=== PATIENT | male | born 2000 | race African-American/Black ===

== ENCOUNTER 2020-08-24 08:43 | Emergency (ER) | payer BC ==
--- OUTSIDE RECORDS SUMMARY | 2020-08-24 08:45 | XMS REPORT | Continuity of Care Document ---
:2000 Author Organization [facility] t Address [address] [place] [address] Care Team Providers Name Role Phone Provider, [facility] Attending Clinician Unavailable Problems This patient has no known problems. Allergies, Adverse Reactions, Alerts This patient has no known allergies or adverse reactions. Medications This patient has no known medications. Procedures This patient has no known procedures. Encounters Start End Encounter Admission Attending Care Care Encounter Source Date/Time Date/Time Type Type Clinicians Facility Department ID 2020-07-26 2020-07-26 Urgent Provider, [facility] [id number] 12:25:29 13:47:07 Care [facility] [id number] [facility] [id number] [phone] [address] Results This patient has no known results.
--- NOTE | 2020-08-24 09:12 | EDPHYS ---
Physician Documentation [facility] Name: Tong Dimas Age: 20 yrs Sex: Male : 2000 Arrival Date: 08/24/2020 Time: 08:46 Bed 4 Private MD: LUCA Physician Justin Prince HPI: 08/24 09:02 This 20 yrs old Black Male presents to ER via Ambulatory with complaints of Abdominal kami Pain. 09:02 The patient presents with abdominal pain in the epigastric area. Onset: The kami symptoms/episode began/occurred last night. The patient presents to the emergency department with nausea, vomiting, abdominal pain, of the epigastric area, right upper quadrant and left upper quadrant. Onset: The symptoms/episode began/occurred 2 day(s) ago. Possible causes: unknown. The symptoms are aggravated by nothing. The symptoms are alleviated by nothing. The symptoms do not radiate. Modifying factors: The symptoms are alleviated by nothing. Historical: - Allergies: 09:00 No Known Allergies; aa5 - PMHx: 09:00 None; aa5 - PSHx: 09:00 None; aa5 - Immunization history:: Adult Immunizations up to date. - Social history:: Smoking status: Patient denies any tobacco usage or history of. - Family history:: not pertinent. ROS: 09:02 Constitutional: Negative for fever, chills, and weight loss, Eyes: Negative for injury, kami pain, redness, and discharge, ENT: Negative for injury, pain, and discharge, Neck: Negative for injury, pain, and swelling, Cardiovascular: Negative for chest pain, palpitations, and edema, Respiratory: Negative for shortness of breath, cough, wheezing, and pleuritic chest pain, Back: Negative for injury and pain, : Negative for injury, bleeding, discharge, and swelling, MS/Extremity: Negative for injury and deformity, Skin: Negative for injury, rash, and discoloration, Neuro: Negative for headache, weakness, numbness, tingling, and seizure, Psych: Negative for depression, anxiety, suicide ideation, homicidal ideation, and hallucinations, Allergy/Immunology: Negative for hives, rash, and allergies, Endocrine: Negative for neck swelling, polydipsia, polyuria, polyphagia, and marked weight changes, Hematologic/Lymphatic: Negative for swollen nodes, abnormal bleeding, and unusual bruising. 09:02 Abdomen/GI: Positive for abdominal pain, nausea, vomiting, of the epigastric area, right upper quadrant and left upper quadrant. Exam: 09:02 Constitutional: This is a well developed, well nourished patient who is awake, alert, kami and in no acute distress. Head/Face: Normocephalic, atraumatic. Eyes: Pupils equal round and reactive to light, extra-ocular motions intact. Lids and lashes normal. Conjunctiva and sclera are non-icteric and not injected. Cornea within normal limits. Periorbital areas with no swelling, redness, or edema. ENT: Nares patent. No nasal discharge, no septal abnormalities noted. Tympanic membranes are normal and external auditory canals are clear. Oropharynx with no redness, swelling, or masses, exudates, or evidence of obstruction, uvula midline. Mucous membranes moist. Neck: Trachea midline, no thyromegaly or masses palpated, and no cervical lymphadenopathy. Supple, full range of motion without nuchal rigidity, or vertebral point tenderness. No Meningismus. Chest/axilla: Normal chest wall appearance and motion. Nontender with no deformity. No lesions are appreciated. Cardiovascular: Regular rate and rhythm with a normal S1 and S2. No gallops, murmurs, or rubs. Normal PMI, no JVD. No pulse deficits. Respiratory: Lungs have equal breath sounds bilaterally, clear to auscultation and percussion. No rales, rhonchi or wheezes noted. No increased work of breathing, no retractions or nasal flaring. Abdomen/GI: Soft, non-tender, with normal bowel sounds. No distension or tympany. No guarding or rebound. No evidence of tenderness throughout. Back: No spinal tenderness. No costovertebral tenderness. Full range of motion. Male : Normal genitalia with no discharge or lesions. Skin: Warm, dry with normal turgor. Normal color with no rashes, no lesions, and no evidence of cellulitis. MS/ Extremity: Pulses equal, no cyanosis. Neurovascular intact. Full, normal range of motion. Neuro: Awake and alert, GCS 15, oriented to person, place, time, and situation. Cranial nerves II-XII grossly intact. Motor strength 5/5 in all extremities. Sensory grossly intact. Cerebellar exam normal. Normal gait. Psych: Awake, alert, with orientation to person, place and time. Behavior, mood, and affect are within normal limits. Vital Signs: 08:48 BP 135 / 79; Pulse 63; Resp 16 S; Temp 97.7(O); Pulse Ox 100% on R/A; aa5 MDM: 08:50 Patient medically screened. kami 09:09 Differential diagnosis: Nonspecific abd pain, gastritis, gastritis, non-specific abd kami pain. Data reviewed: vital signs, nurses notes. Data interpreted: environmental monitoring specialist: not applicable for this patient encounter. rate is 63 beats/min, rhythm is regular, Pulse oximetry: on room air is 100 %. Counseling: I had a detailed discussion with the patient and/or guardian regarding: the historical points, exam findings, and any diagnostic results supporting the discharge/admit diagnosis, the need for outpatient follow up, for definitive care, a family practitioner. Administered Medications: No medications were administered Disposition: 08/24/20 09:11 Discharged to Home. Impression: Vomiting, Abdominal tenderness - resolved. - Condition is Stable. - Discharge Instructions: Abdominal Pain, Adult, Nausea and Vomiting, Adult, Nausea and Vomiting, Adult, [id number], Abdominal Pain, Adult, [id number]. - Work release form, Medication Reconciliation Form, Thank You Letter, Antibiotic Education, Prescription Opioid Use form. - Follow up: Private Physician; When: 1 - 2 days; Reason: Recheck today's complaints, Continuance of care, Re-evaluation by your physician. - Problem is new. - Symptoms have improved. Signatures: Justin Prince MD MD cha Calderon, Audri RN RN aa5 Ethan Vidal RN RN jd3 Corrections: (The following items were deleted from the chart) 18 09:11 08/24/2020 09:11 Discharged to Home. Impression: Vomiting; Abdominal tenderness - jd3 resolved. Condition is Stable. Forms are Medication Reconciliation Form, Thank You Letter, Antibiotic Education, Prescription Opioid Use. Follow up: Private Physician; When: 1 - 2 days; Reason: Recheck today's complaints, Continuance of care, Re-evaluation by your physician. Problem is new. Symptoms have improved. kami
--- NOTE | 2020-08-24 09:12 | ER ---
Nurse's Notes [facility] Name: Tong Dimas Age: 20 yrs Sex: Male : 2000 Arrival Date: 08/24/2020 Time: 08:46 Bed 4 Private MD: Diagnosis: Vomiting;Abdominal tenderness-resolved Presentation: 08/24 08:48 Chief complaint: Patient states: generalized abd pain, vomited once [employer]. Pt reports aa5 pain began after eating a sandwich at work around 0300 today. Pt denies diarrhea. 08:48 Coronavirus screen: At this time, the client does not indicate any symptoms associated aa5 with coronavirus-19. Ebola Screen: Patient negative for fever greater than or equal to 101.5 degrees Fahrenheit, and additional compatible Ebola Virus Disease symptoms. Initial Sepsis Screen: Does the patient meet any 2 criteria? No. Patient's initial sepsis screen is negative. Does the patient have a suspected source of infection? No. Patient's initial sepsis screen is negative. Risk Assessment: Do you want to hurt yourself or someone else? Patient reports no desire to harm self or others. Onset of symptoms was August 2020. 08:48 Acuity: PRAKASH 4 aa5 08:48 Method Of Arrival: Ambulatory aa5 Historical: - Allergies: 09:00 No Known Allergies; aa5 - PMHx: 09:00 None; aa5 - PSHx: 09:00 None; aa5 - Immunization history:: Adult Immunizations up to date. - Social history:: Smoking status: Patient denies any tobacco usage or history of. - Family history:: not pertinent. Screenin:11 Abuse screen: Denies threats or abuse. Nutritional screening: No deficits noted. jd3 Tuberculosis screening: No symptoms or risk factors identified. Fall Risk Ambulatory Aid- None/Bed Rest/Nurse Assist (0 pts). Gait- Normal/Bed Rest/Wheelchair (0 pts) Mental Status- Oriented to own ability (0 pts). Total Michaud Fall Scale indicates No Risk (0-24 pts). Assessment: 09:10 General: Appears in no apparent distress. comfortable, Behavior is calm, cooperative, jd3 appropriate for age. Pain: Complains of pain in abdomen Quality of pain is described as aching. Neuro: Level of Consciousness is awake, alert, obeys commands, Oriented to person, place, time, situation. Cardiovascular: Denies chest pain, Capillary refill < 3 seconds Patient's skin is warm and dry. Respiratory: Airway is patent Respiratory effort is even, unlabored, Respiratory pattern is regular, symmetrical, Denies cough, shortness of breath. GI: Abdomen is round non-distended, Abd is soft X 4 quads Reports upper abdominal pain, nausea, vomiting. : No signs and/or symptoms were reported regarding the genitourinary system. EENT: No signs and/or symptoms were reported regarding the EENT system. Derm: Skin is intact, Skin is dry, Skin is normal, Skin temperature is warm. Musculoskeletal: Circulation, motion, and sensation intact. Range of motion: intact in all extremities. Vital Signs: 08:48 BP 135 / 79; Pulse 63; Resp 16 S; Temp 97.7(O); Pulse Ox 100% on R/A; aa5 ED Course: 08:46 Patient arrived in ED. am2 08:48 Arm band placed on Patient placed in an exam room, on a stretcher. aa5 08:50 Ethan Vidal, RN is Primary Nurse. jd3 08:50 Justin Prince MD is Attending Physician. [facility] 08:59 Triage completed. aa5 09:11 Patient has correct armband on for positive identification. Bed in low position. Call jd3 light in reach. Side rails up X 1. Adult w/ patient. Pulse ox on. NIBP on. 09:17 No provider procedures requiring assistance completed. Patient did not have IV access jd3 during this emergency room visit. Administered Medications: No medications were administered Outcome: 09:11 Discharge ordered by . kami 09:17 Discharged to home ambulatory. jd3 09:17 Condition: stable 09:17 Discharge instructions given to patient, Instructed on discharge instructions, follow up and referral plans. Demonstrated understanding of instructions, follow-up care. 09:18 Patient left the ED. jd3 Signatures: Justin Prince MD MD cha Calderon, Audri, RN RN aa5 Ana Swift 2 Ethan Vidal RN RN jd3
[2020-08-24 09:22] VITALS: BP 135/79; TEMP 97.7; O2SAT 100
== END 2020-08-24 09:18 | disposition home or self-care (01) ==
LOC: ER 08:43
DX: R11.10 Vomiting, unspecified (principal)
CPT/HCPCS: 99283